=== PATIENT | female | born 1990 | race Caucasian/White ===

== ENCOUNTER → 2020-08-14 15:18 | Outpatient (BNVA) | payer OTHER, SELFPAY | PROVIDERS: Family Provider Family Medicine; PCP Family Medicine | DX: Z20.828 Contact with and (suspected) exposure to other viral communicable diseases (principal); Z01.812 Encounter for preprocedural laboratory examination | CPT/HCPCS: 87635 ==

== ENCOUNTER 2021-12-03 20:04 | Inpatient (IN) | payer OTHER, BC, SELFPAY ==
[2021-12-03] VITALS (30 sets, daily range): BP systolic 134–192; BP diastolic 68–103; PULSE 65–90; RESP 16–18; TEMP 35.5–35.9; BMI 49.6
[2021-12-03 18:34] LABS: Basophils % 0.2 %; Eosinophils # 0.1 10^3/uL (0.0-0.8); Eosinophils % 0.5 %; Hemoglobin 11.1 g/dL (11.5-15.3); Lymphocytes % 17.3 %; Mean Corpuscular HGB Conc 32.6 g/dL (30.0-36.0); Mean Corpuscular Hemoglobin 27.7 pg (28.0-34.0); Mean Corpuscular Volume 84.8 fl (81-99); Mean Platelet Volume 11.3 fL (7.4-10.4); Monocytes # 0.7 10^3/uL (0.2-0.9); Monocytes % 5.7 %; Neutrophils % 75.8 %; Nucleated Red Blood Cells % 0 %; Platelet Count 230 10^3/cmm (130-400); Red Blood Count 4.01 10^6/uL (4.1-5.3); Red Cell Distribution Width 12.7 % (12.1-15.1); White Blood Count 11.5 10^3/uL (4.0-10.0)
[2021-12-03 18:54] LABS: Albumin Level 3.4 g/dL (3.5-5.2); Alkaline Phosphatase 159 IU/L (35-105); Anion Gap 16.7 (5-19); Aspartate Amino Transferase 13 U/L (0-32); Blood Urea Nitrogen 5 mg/dL (6-20); Calcium 9.7 mg/dL (8.5-10.5); Carbon Dioxide 20 mmol/L (22-29); Chloride 102 mmol/L (98-107); Globulin 3.7 g/dL (1.3-4.6); Glomerular Filtration Rate 142.1 mL/min (90-130); Glucose 71 mg/dL (65-115); Osmolality Calculated 276 mOsm/kg (285-295); Potassium 3.7 mmol/L (3.5-5.1); Sodium 135 mmol/L (136-145); Total Bilirubin 0.3 mg/dL (0.15-1.2); Total Protein 7.1 g/dL (6.6-8.7); Uric Acid 4.7 mg/dL (2.4-5.7)
[2021-12-03 18:56] LABS: Urine Creatinine 51 mg/dL (28-217); Urine Protein Random 4 mg/dL
[2021-12-03 18:59] LABS: UPRO/UCREAT Ratio 0.08 mg/mg CR
[2021-12-03 19:04] LABS: Alanine Aminotransferase 12 U/L (0-33)
[2021-12-03] MEDS: dextrose 5%-lactated ringers 1,000 ML 125 ML IV (20:46)
[2021-12-03] MEDS: miSOPROStol 100 mcg tablet 25 MCG VAGINAL (20:47)
[2021-12-03] MEDS: labetalol 5 mg/mL SDV 20mL 20 MG IVP (21:52)
[2021-12-04] VITALS (47 sets, daily range): BP systolic 119–210; BP diastolic 62–103; PULSE 55–96; RESP 16–17; TEMP 35.9–36.9; O2SAT 96–98
[2021-12-04] MEDS: dextrose 5%-lactated ringers 1,000 ML 125 ML IV (04:56)
[2021-12-04] MEDS: oxytocin 30 UNIT/500 ML BAG IV (04:57)
[2021-12-04] MEDS: fentaNYL 50 mcg/mL INJ 2mL IVP (05:27)
--- NOTE | 2021-12-04 06:32 | PM.OPHPUD ---
Labor & Delivery H&P Update Date of Procedure: December 04, 2021 Date H&P Performed: 12/03/21 Changes to previous documentation: None. The patient presented to the hospital after an appointment with me in the office Admission Diagnosis: 1. 31-year-old 3 para 2-0-0-2 at 37 weeks and 5 days estimated gestational age presenting for induction due to gestational hypertension. Planned procedure: Spontaneous vaginal delivery Other information: The patient is an otherwise healthy female who presented to my office for a routine visit. During her visit she was noted to have blood pressures with a systolic blood pressure in the 150s to 140s, and diastolic blood pressures in the 90s. Otherwise, she had no symptoms of preeclampsia. As result she was sent to the hospital for a preeclamptic work-up. Her preeclampsia work-up was unremarkable. But, during her evaluation she was noted to have intermittent blood pressures that were severe. Because of her gestational age, the decision was made to induce the patient. She was placed on Cytotec 25 mcg per vagina. Of note, she was already having painful consistent contractions prior to initiating the Cytotec. The patient's course was otherwise unremarkable. Her labs were generally unremarkable Her blood type was O+. Her antibody screen was negative. She is rubella nonimmune. She was GBS negative. Her glucose screen was negative. The remainder of her labs are within normal limits. Related Problem List Diagnoses (1) 37 weeks gestation of : (2) Gestational hypertension: We will continue to monitor the patient's blood pressure. She does appear to have moments where her blood pressure spikes when she is anxious. They then resolved back to a mildly elevated blood pressure. Since she has no other symptoms of preeclampsia, and her blood pressure spikes are intermittent, I will wait and see if magnesium is needed.
--- NOTE | 2021-12-04 06:46 | P.PCNOB_ITS ---
Delivery Note: Date of delivery: December 04, 2021 Pre-delivery diagnoses: 1. 31-year-old 3 para 2-0-0-2 with an estimated gestational age of 37 weeks and 5 days 2. Gestational hypertension Post-delivery diagnoses: Status post spontaneous vaginal delivery Procedure: Spontaneous vaginal delivery Delivering Physician: Jamie Garcia Estimated blood loss (mL): 100 Pre-Delivery Course: The patient presented to the hospital for induction due to gestational hypertension. She was already having consistent painful contractions prior to starting Cytotec. The patient was given 1 dose of Cytotec vaginally. She had spontaneous rupture membranes. Intermittently, she spiked severe blood pressures during the night. Her blood pressures were good then resolve to mildly elevated blood pressures. She did receive 1 dose of labetalol during the night. She continued to have no symptoms associated with preeclampsia. She then progressed to complete. Delivery: DELIVERY: The patient progressed to complete without difficulty. She delivered a male with a weight of 7 pounds 4 ounces with Apgars of 8, 9. The baby was delivered from the CONNIE position and placed on the mother's abdomen. The cord was then clamped and cut. There was no nuchal cord. There was no meconium. The placenta and 3 vessel cord were delivered intact shortly thereafter. The perineum and vaginal vault were carefully examined. A first- degree anterior vaginal wall laceration was noted that was not bleeding. No repair was performed. Both the mother and the baby were in stable condition. Post-Delivery Status: Good A&P Assessment and plan (1) Gestational hypertension: Status: Acute (2) 37 weeks gestation of : Status: Acute (3) Spontaneous vaginal delivery: We will continue to monitor the patient's blood pressure. Hopefully we can avoid magnesium at this point. I anticipate routine care as long as her blood pressure remained stable. Status: Acute Coding Level of Care Code Acute Food And Beverage Server for g Fwd Diagnoses Gestational hypertension O13.9 37 weeks gestation of Z3A.37 Spontaneous vaginal delivery O80
[2021-12-04] MEDS: ketorolac 30 mg/mL INJ IVP (06:47)
[2021-12-04] MEDS: HYDROcodone-acetaminophen 5-325 mg Tablet PO ×2 (07:42→14:33)
[2021-12-04] MEDS: prenatal vitamin Capsule 1 CAP PO (08:42)
[2021-12-04] MEDS: docusate sodium 100 mg Capsule PO ×2 (08:42→17:25)
[2021-12-04] MEDS: ibuprofen 800 mg tablet PO ×3 (08:42→21:27)
[2021-12-04 21:48] LABS: Hematocrit 30.8 % (37.0-47.0); Mean Corpuscular HGB Conc 32.5 g/dL (30.0-36.0); Mean Corpuscular Hemoglobin 28.1 pg (28.0-34.0); Mean Corpuscular Volume 86.5 fl (81-99); Mean Platelet Volume 11.6 fL (7.4-10.4); Platelet Count 199 10^3/cmm (130-400); Red Blood Count 3.56 10^6/uL (4.1-5.3); White Blood Count 11.5 10^3/uL (4.0-10.0)
[2021-12-05] MEDS: HYDROcodone-acetaminophen 5-325 mg Tablet PO (00:06)
[2021-12-05 04:00] VITALS: BP 134/70; PULSE 94; RESP 16; TEMP 36.6
--- NOTE | 2021-12-05 06:45 | PM.OBGYDC ---
Discharge Providers OFFLINE CUTTER Date of Admission: 12/03/21 20:04 Date of Discharge: 12/05/21 Attending Provider at Admission: Jamie Garcia MD Attending Provider at Discharge: Jamie Garcia MD Primary Care Provider: Jamie Garcia MD Diagnoses at Discharge Discharge Diagnosis (1) Gestational hypertension: Status: Acute (2) 37 weeks gestation of : Status: Acute (3) Spontaneous vaginal delivery: Status: Acute Reason for Visit Reason for Visit: elevated blood pressure, pre-E workup Hospital Course Hospital Course The patient presented to the hospital for induction due to gestational hypertension. She occasionally had blood pressures in the severe range. She was placed on Cytotec, and progressed to complete having an unremarkable vaginal delivery. Her course was also unremarkable. She breast-fed well. Her bleeding was within normal limits. Her pain was well controlled. Her blood pressures improved after delivery of the . There were no further concerns. Information Peripartum Data: Delivery Method: Vaginal Physical Exam Narrative: The patient is alert. She appears comfortable. Her heart has a regular rate and rhythm with no murmurs appreciated. Lungs are clear to auscultation bilaterally. Her fundus is firm and below the umbilicus. Discharge Data Studies Completed and Pending Laboratory Results WBC 11.5 10^3/uL (4.0-10.0) H 12/04/21 21: RBC 3.56 10^6/uL (4.1-5.3) L 12/04/21 21:30 Hgb 10.0 g/dL (11.5-15.3) L 12/04/21 21: Hct 30.8 % (37.0-47.0) L 12/04/21 21: MCV 86.5 fl (81-99) 12/04/21 21:30 MCH 28.1 pg (28.0-34.0) 12/04/21 21: MCHC 32.5 g/dL (30.0-36.0) 12/04/21 21: RDW 13.0 % (12.1-15.1) 12/04/21 21:30 Plt Count 199 10^3/cmm (130-400) 12/04/21 21:30 MPV 11.6 fL (7.4-10.4) H 12/04/21 21:30 Neut % (Auto) 75.8 % 12/03/21 18:06 Lymph % (Auto) 17.3 % 12/03/21 18:06 [place] % (Auto) 5.7 % 12/03/21 18:06 Eos % (Auto) 0.5 % 12/03/21 18:06 Baso % (Auto) 0.2 % 12/03/21 18:06 Neut # (Auto) 8.70 10^3/uL (1.8-7.7) H 12/03/21 18:06 Lymph # (Auto) 2.0 10^3/uL (0.8-4.8) 12/03/21 18:06 [place] # (Auto) 0.7 10^3/uL (0.2-0.9) 12/03/21 18:06 Eos # (Auto) 0.1 10^3/uL (0.0-0.8) 12/03/21 18:06 Baso # (Auto) 0.0 10^3/uL (0.0-0.1) 12/03/21 18:06 Nucleated RBC % (auto) 0 % 12/03/21 18:06 Nucleated RBCs # 0.0 /100WBC 12/03/21 18:06 Sodium 135 mmol/L (136-145) L 12/03/21 18:06 Potassium 3.7 mmol/L (3.5-5.1) 12/03/21 18:06 Chloride 102 mmol/L (98-107) 12/03/21 18:06 Carbon Dioxide 20 mmol/L (22-29) L 12/03/21 18:06 Anion Gap 16.7 (5-19) 12/03/21 18:06 BUN 5 mg/dL (6-20) L 12/03/21 18:06 Creatinine 0.5 mg/dL (0.5-0.9) 12/03/21 18:06 GFR Calculation 142.1 mL/min (90-130) H 12/03/21 18:06 Glucose 71 mg/dL (65-115) 12/03/21 18:06 Calculated Osmolality 276 mOsm/kg (285-295) L 12/03/21 18:06 Uric Acid 4.7 mg/dL (2.4-5.7) 12/03/21 18:06 Calcium 9.7 mg/dL (8.5-10.5) 12/03/21 18:06 Total Bilirubin 0.3 mg/dL (0.15-1.2) 12/03/21 18:06 AST 13 U/L (0-32) 12/03/21 18:06 ALT 12 U/L (0-33) 12/03/21 18:06 Alkaline Phosphatase 159 IU/L (35-105) H 12/03/21 18:06 Total Protein 7.1 g/dL (6.6-8.7) 12/03/21 18:06 Albumin 3.4 g/dL (3.5-5.2) L 12/03/21 18:06 Globulin 3.7 g/dL (1.3-4.6) 12/03/21 18:06 U Random Total Protein 4 mg/dL 12/03/21 18:00 Urine Creatinine 51 mg/dL (28-217) 12/03/21 18:00 Protein/Creatinin Ratio 0.08 mg/mg CR 12/03/21 18:00 Vitals Last Vital Signs Temp 98.2 F 12/04/21 16:16 Pulse 72 12/04/21 20:00 Resp 16 12/04/21 20:00 BP 137/69 12/04/21 20:00 Pulse Ox 98 12/04/21 20:00 Discharge Plan Discharge Condition: Stable Prescriptions: New ibuprofen 800 mg Tablet 800 mg PO TID Qty: 45 0RF Continued Vitamin 27 mg iron- 800 mcg Tablet 1 tab PO DAILY 0RF Referrals: Jamie Garcia MD [Primary Care Provider] - 12/10/21 4:00 pm Discharge Diet: Advance as tolerated Discharge Activity: Resume usual activity Patient Instructions: Opioid Safety Discharge Attestations OFFLINE CUTTER Time Spent in Discharge Care*: less than 30 min Coding Level of Care Code Acute Maintenance Mechanic Technician for Chg Fwd Diagnoses Gestational hypertension O13.9 37 weeks gestation of Z3A.37 Spontaneous vaginal delivery O80
[2021-12-05 07:45] VITALS: BP 142/87; PULSE 80; RESP 18; TEMP 36.6
[2021-12-05 08:25] VITALS: BP 142/87; PULSE 80; RESP 18; TEMP 36.6
== END 2021-12-05 08:25 | disposition home or self-care (01) | DRG 807 ==
LOC: OPOB 12-04 00:19 → OBGYN 12-04 00:19
PROVIDERS: Admitting Provider Family Medicine; PCP Family Medicine; Visit Provider Family Medicine
DX: O13.4 Gestational [pregnancy-induced] hypertension without significant proteinuria, complicating childbirth (principal); Z37.0 Single live birth; Z3A.37 37 weeks gestation of pregnancy
CPT/HCPCS: 12345; 36415; 59025; 59409; 80053; 82570; 84156; 84550; 85025; 85027; 99211; J1885; J3010; J3490

== ENCOUNTER 2022-10-31 20:33 | Observation (INO) | payer BC, SELFPAY ==
[2022-10-31 20:43] VITALS: BP 148/107; PULSE 79; RESP 24; TEMP 36.7; O2SAT 98; BMI 48.3
--- NOTE | 2022-10-31 21:16 | USR_ITS ---
PROCEDURE INFORMATION: Exam: US Abdomen, Limited; Right Upper Quadrant Exam date and time: 10/31/2022 9:30 PM Age: 32 years old Clinical indication: Abdominal pain; Other: Ruq pain; Patient HX: Patient was diagnosed with gallstones 2020, but has had no intervention. TECHNIQUE: Imaging protocol: Real time ultrasound of the abdomen with image documentation. Limited exam focused on the right upper quadrant. COMPARISON: US OB >= 14 weeks fetus [id number] 08/13/2021 4:18 PM FINDINGS: Liver: There is mild hyperechogenicity of the hepatic parenchyma compatible with fatty infiltration. Gallbladder: There are hyperechoic foci exhibiting acoustic shadowing seen within the gallbladder lumen, the largest measuring 3.4 cm compatible with prominent gallstones. The largest gallstone may be impacted in the gallbladder neck. There is asymmetric gallbladder wall thickening measuring up to 5 mm. There is a positive sonographic Rodriguez sign elicited. Biliary ducts: Normal. No stones. No dilation. Pancreas: The pancreas is not visualized secondary to body habitus and bowel gas. Right kidney: Normal. No mass. No hydronephrosis. Portal venous: Hepatopetal blood flow is documented within the main portal vein with color Doppler and duplex waveform sonography. US/US gall bladder [id number] IMPRESSION: 1. Prominent gallstones, the largest may be impacted in the gallbladder neck measuring 3.4 cm. There is asymmetric gallbladder wall thickening and a positive sonographic Rodriguez sign elicited, findings compatible with gallstone cholecystitis. 2. Fatty infiltration of the liver
--- NOTE | 2022-10-31 21:17 | ED_ITS ---
HPI - Abdominal Pain General: Chief Complaint: Abdominal Pain Stated Complaint: abd pain Time Seen by Provider: 10/31/22 20:55 Source: patient Mode of arrival: ambulatory Limitations: no limitations History of Present Illness: 32-year-old female who states she has had a history of gallstone she states she is post to get her gallbladder taken out 2 years ago but then she became and never had it taken out states she has been having increasing pain over the last month. States pain is sharp in nature seems to be worse with eating her pain is currently a 5 out of 10 she had some nausea denies any vomiting denies any fevers. Associated Symptoms: Denies chills, dysuria and fever(s) Review of Systems Const: Denies: fever(s), chills, body aches or change in appetite Eyes: Denies: blurry vision or eye discomfort ENMT: Denies: throat pain or dental pain Card: Denies: chest pain Resp: Denies: dyspnea GI: Reports: abdominal pain : Denies: dysuria Musc: Denies: neck pain or back pain Skin/Breast: Denies: rash Neuro: Denies: headache(s) Psych: Denies: depression [place]/Lymph: Denies: easy bruising All/Imm: Denies: urticaria PFSH ED PFSH: Medical History (Updated 11/01/22 @ 00:30 by Christel Lea MD) No pertinent past medical history Social History Smoking and tobacco status: former smoker Alcohol intake: never Physical Exam Const: COMMON NORMALS: no acute distress, patient oriented x3 and healthy appearing HENMT: COMMON NORMALS: normocephalic and atraumatic HEAD & SCALP: normocephalic and atraumatic Eye: COMMON NORMALS: Equal, round and reactive pupils present and EOMs intact bilaterally PUPIL: Yes Equal, round and reactive pupils present Neck/C-Spine: COMMON NORMALS: full ROM and supple Chest: COMMONS NORMALS: normal inspection of the chest and normal palpation of entire chest wall Resp: COMMON NORMALS: normal respiratory effort, No retractions, No use of accessory muscles and clear to auscultation bilaterally AUSCULTATION: clear to auscultation bilaterally Cardio: COMMON NORMALS: regular rate, regular rhythm and No murmurs present (Cardio) RATE: regular rate RHYTHM: regular rhythm GI: COMMON NORMALS: Normal to inspection, nondistended, normoactive bowel sounds present, Soft to palpation, non-tender and no masses PALPATION: Yes Soft to palpation Extremity: COMMON NORMALS: normal to inspection and full ROM Neuro: COMMON NORMALS: patient oriented x3, moves all extremities and no focal motor deficits Psych: COMMON NORMALS: mental status grossly normal, Normal thought process present and cooperative THOUGHT PROCESS: Normal thought process present Skin: COMMON NORMALS: no rashes or lesions noted and no wounds GENERAL SKIN EXAM: no rashes or lesions noted Course Vital Signs: Vital signs: Vital Signs Temperature 98.0 F 10/31/22 20:43 Pulse Rate 79 10/31/22 20:43 Respiratory Rate 18 10/31/22 23:36 Blood Pressure 148/107 10/31/22 20:43 Pulse Oximetry 98 10/31/22 20:43 Oxygen Delivery Me thod 10/31/22 20:43 MDM - Abdominal Pain Medical Decision Making Patient presents here with abdominal pain ultrasound shows cholecystitis she continue her pain here I spoke to surgeon on-call will admit for pain control with IV antibiotics. Lab Data 10/31/22 21:23 10/31/22 21:23 Labs/Radiology: Radiology Impressions Gallbladder Ultrasound 10/31/22 21:16 IMPRESSION: 1. Prominent gallstones, the largest may be impacted in the gallbladder neck measuring 3.4 cm. There is asymmetric gallbladder wall thickening and a positive sonographic Rodriguez sign elicited, findings compatible with gallstone cholecystitis. 2. Fatty infiltration of the liver Laboratory Results WBC 8.0 10^3/uL (4.0-10.0) 10/31/22 21:23 RBC 4.71 10^6/uL (4.1-5.3) 10/31/22 21:23 Hgb 13.0 g/dL (11.5-15.3) 10/31/22 21: Hct 40.5 % (37.0-47.0) 10/31/22 21: MCV 86.0 fl (81-99) 10/31/22 21: MCH 27.6 pg (28.0-34.0) L 10/31/22: MCHC 32.1 g/dL (30.0-36.0) 10/31/22: RDW 12.3 % (12.1-15.1) 10/31/22: Plt Count 265 10^3/cmm (130-400) 10/31/22: MPV 10.3 fL (7.4-10.4) 10/31/22: Neut % (Auto) 52.7 % 10/31/22: Lymph % (Auto) 38.5 % 10/31/22: [place] % (Auto) 5.3 % 10/31/22: Eos % (Auto) 2.6 % 10/31/22: Baso % (Auto) 0.5 % 10/31/22: Neut # (Auto) 4.21 10^3/uL (1.8-7.7) 10/31/22: Lymph # (Auto) 3.1 10^3/uL (0.8-4.8) 10/31/22: [place] # (Auto) 0.4 10^3/uL (0.2-0.9) 10/31/22: Eos # (Auto) 0.2 10^3/uL (0.0-0.8) 10/31/22: Baso # (Auto) 0.0 10^3/uL (0.0-0.1) 10/31/22: Nucleated RBC % (auto) 0 % 10/31/22: Nucleated RBCs # 0.0 /100WBC 10/31/22: Sodium 138 mmol/L (136-145) 10/31/22: Potassium 3.7 mmol/L (3.5-5.1) 10/31/22: Chloride 103 mmol/L (98-107) 10/31/22: Carbon Dioxide 25 mmol/L (22-29) 10/31/22: Anion Gap 13.7 (5-19) 10/31/22: BUN 13 mg/dL (6-20) 10/31/22: Creatinine 0.8 mg/dL (0.5-0.9) 10/31/22: GFR Calculation 82.1 mL/min (90-130) L 10/31/22: Glucose 90 mg/dL (65-115) 10/31/22 21: Calculated Osmolality 286 mOsm/kg (285-295) 10/31/22: Calcium 8.8 mg/dL (8.5-10.5) 10/31/22: Total Bilirubin 0.2 mg/dL (0.15-1.2) 10/31/22: AST 36 U/L (0-32) H 10/31/22: ALT 59 U/L (0-33) H 10/31/22: Alkaline Phosphatase 105 U/L (35-105) 10/31/22: Total Protein 7.7 g/dL (6.6-8.7) 10/31/22: Albumin 4.2 g/dL (3.5-5.2) 10/31/22: Globulin 3.5 g/dL (1.3-4.6) 10/31/22: Lipase 25 U/L (13-60) 10/31/22: HCG, Qual Negative (Negative) 10/31/22: Urine Color Yellow (Yellow) 10/31/22 22:05 Urine Appearance Clear (CLEAR) 10/31/22 22:05 Urine pH 5 (5-7) 10/31/22 22:05 Ur Specific [place] 1.030 (1.005-1.030) 10/31/22 22:05 Urine Protein Trace (Negative) 10/31/22 22:05 Urine Glucose (UA) Norm (Normal) 10/31/22 22:05 Urine Ketones Negative (Negative) 10/31/22 22:05 Urine Blood Neg (Negative) 10/31/22 22:05 Urine Nitrate Negative (Negative) 10/31/22 22:05 Urine Bilirubin Neg (Negative) 10/31/22 22:05 Urine Urobilinogen Norm mg/dL (Negative) 10/31/22 22:05 Ur Leukocyte Esterase Negative (Negative) 10/31/22 22:05 Urine RBC 0-4 /hpf (0-2) H 10/31/22 22:05 Urine WBC 0-4 /hpf (0-5) H 10/31/22 22:05 Ur Squamous Epith Cells 0-4 /hpf (0-5) H 10/31/22 22:05 Amorphous Sediment 1+ /hpf 10/31/22 22:05 Urine Bacteria None /hpf (NONE) 10/31/22 22:05 Discharge Plan Discharge Patient Disposition: Admitted As Inpatient Admit Provider: Campbell Bates Clinical Impression: Cholecystitis Condition: Stable Coding Level of Care Code ED Director Of Hospitality for Ira Duong
[2022-10-31] MEDS: ondansetron 2 mg/ML SDV 2 mL 4 MG IVP (21:21)
[2022-10-31] MEDS: morphine 4 mg/mL SDV 1 mL IVP ×2 (21:21→23:36)
[2022-10-31 22:10] LABS: Basophils % 0.5 %; Eosinophils # 0.2 10^3/uL (0.0-0.8); Eosinophils % 2.6 %; Hematocrit 40.5 % (37.0-47.0); Lymphocytes # 3.1 10^3/uL (0.8-4.8); Lymphocytes % 38.5 %; Mean Corpuscular HGB Conc 32.1 g/dL (30.0-36.0); Mean Corpuscular Hemoglobin 27.6 pg (28.0-34.0); Mean Platelet Volume 10.3 fL (7.4-10.4); Monocytes # 0.4 10^3/uL (0.2-0.9); Monocytes % 5.3 %; Neutrophils # 4.21 10^3/uL (1.8-7.7); Neutrophils % 52.7 %; Nucleated Red Blood Cells % 0 %; Platelet Count 265 10^3/cmm (130-400); Red Blood Count 4.71 10^6/uL (4.1-5.3); Red Cell Distribution Width 12.3 % (12.1-15.1)
[2022-10-31 22:16] LABS: HCG, Serum Qual Negative (Negative)
[2022-10-31 22:20] LABS: Alanine Aminotransferase 59 U/L (0-33); Albumin Level 4.2 g/dL (3.5-5.2); Alkaline Phosphatase 105 U/L (35-105); Anion Gap 13.7 (5-19); Aspartate Amino Transferase 36 U/L (0-32); Blood Urea Nitrogen 13 mg/dL (6-20); Calcium 8.8 mg/dL (8.5-10.5); Carbon Dioxide 25 mmol/L (22-29); Chloride 103 mmol/L (98-107); Globulin 3.5 g/dL (1.3-4.6); Glomerular Filtration Rate 82.1 mL/min (90-130); Glucose 90 mg/dL (65-115); Lipase 25 U/L (13-60); Osmolality Calculated 286 mOsm/kg (285-295); Potassium 3.7 mmol/L (3.5-5.1); Sodium 138 mmol/L (136-145); Total Bilirubin 0.2 mg/dL (0.15-1.2); Total Protein 7.7 g/dL (6.6-8.7)
[2022-10-31 22:29] LABS: Add Urine Microscopic? YES; Bilirubin Urine Neg (Negative); Blood Urine Neg (Negative); Glucose Urine UA Norm (Normal); Ketones Urine Negative (Negative); Leukocyte Esterase Urine Negative (Negative); Nitrate Urine Negative (Negative); Protein Urine Trace (Negative); Urine Appearance Clear (CLEAR); Urine Color Yellow (Yellow); Urobilinogen Urine Norm (Negative); pH Urine 5 (5-7)
[2022-10-31 22:31] LABS: RBC Urine 0-4 /hpf (0-2); Squamous Epithelial Cell Urine 0-4 /hpf (0-5); WBC Urine 0-4 /hpf (0-5)
[2022-10-31 22:32] LABS: Add Urine Culture? No; Amorphous Sediment Urine 1+ /hpf
[2022-10-31] MEDS: piperacillin-tazobactam 3.375 GM in sodium chloride 0.9% (plus) 50 ML IV (23:23)
[2022-10-31 23:36] VITALS: RESP 18
[2022-11-01 00:49] VITALS: BP 145/103; PULSE 78; RESP 16; O2SAT 96
[2022-11-01 01:00] VITALS: BMI 48.3
[2022-11-01 01:26] VITALS: RESP 16
[2022-11-01] MEDS: HYDROmorphone 1 mg/mL INJ 1 mL IVP (01:26)
[2022-11-01] MEDS: sodium chloride 0.9% 1,000 ML 100 ML IV ×2 (01:32→17:06)
[2022-11-01] MEDS: ondansetron 2 mg/ML SDV 2 mL 4 MG IVP ×3 (01:41→10:27)
--- NOTE | 2022-11-01 05:37 | PC.NURSE ---
Patient's IV in right AC infiltrated. IV stopped and removed, catheter tip intact upon removal. Patient tolerated well.
[2022-11-01] MEDS: piperacillin-tazobactam 3.375 GM in sodium chloride 0.9% (plus) 50 ML IV (10:21)
--- NOTE | 2022-11-01 11:11 | PC.CHAP ---
Pastoral Care Encounter/Spiritual Assessment Type of Contact [] Declined information security visit [] Patient/Family/Request visit [] Outpatient visit [] Follow-up visit [] Physician referral [] Code/Alert [x] Routine visit [] Staff referral [] Actively dying [] Patient sleeping [x] Family support [] [] Out of room [] Palliative care [] [] Receiving care in room [] Pre-surgical visit [] Trauma [] Long length of stay [] ICU visit [] Other: Relational/Emotional Strength [x] Patient feels connected with others/family/visitors/staff [] Distress [] Loneliness/isolation [] Abandonment Spirituality of Patient [x] Person of Kaur [] Attends Caodaism of their Kaur [x] Believes in Prayer [] Reads Bible or Jehovah'S Witness materials [] There are Spiritual issues to be addressed Hogshead Inspector Interventions [x] Prayer [x] Active listening [] Non-anxious presence [] Spiritual/emotional support [] Crisis/trauma care [] Spiritual counseling [] Bereavement support [] Provided bereavement packet [] Provided Bible/devotional materials [] Provided toy/stuffed animal, coloring book to patient or family member [] Provided Communion [] Anointing/Badger [] Salvation x [x] Completed spiritual assessment [] Other: Impact on Illness or Injury [] Angry [] Fearful [] Anxious [] Often cries [] Exhaustion [] Unable to work [] Unable to attend voodoo [] Unable to walk/stand [] Unable to read [] Unable to drive [] Unable to eat/drink [] Unable to sleep [] Unable to be with family [] Patient intubated [] Other: Summary Time spent with patient 10 min
--- NOTE | 2022-11-01 11:39 | P.HP_ITS ---
Providers/Chief Complaint Admitting Physician: Campbell Bates DO Primary Care Provider: Jamie Garcia MD Chief Complaint: abd pain History of Present Illness Jolene Turner is a 32 year old female who presents to the hospital with a 2- year history of right upper quadrant abdominal pain. She reports this pain is intermittent and has been constant for the last 2 days. The pain is gnawing and radiates to her back. Eating can make the pain worse. Nothing seems to make t he pain better. She does endorse nausea and vomiting but denies hematemesis. Reports diarrhea but denies hematochezia and/or melena. Denies fever or chills. Ultrasound shows cholecystitis Review of Systems General: Reports: 10 or more systems reviewed and unremarkable except in HPI and below Medications/Allergies Home Medications Medication Instructions Recorded Confirmed Last Taken Type ibuprofen 800 mg tablet 800 mg PO TID #45 tabs 12/05/21 11/01/22 Unknown Rx escitalopram oxalate 10 mg tablet 10 mg PO DAILY 11/01/22 11/01/22 Unknown His tory Allergies Allergy/AdvReac Type Severity Reaction Status Date / Time Cephalosporins Allergy Intermediate hives Verified 11/01/22 07:34 PFSH Acute PFSH: Medical History No pertinent past medical history Social History Smoking and tobacco status: former smoker Alcohol intake: never Vitals/I&O/Wt Last Vital Signs Temp 97.5 F L 11/02/22 03:34 Pulse 80 11/02/22 03:34 Resp 18 11/02/22 03:34 BP 159/91 11/02/22 03:34 Pulse Ox 96 11/02/22 03:34 O2 Del Method 11/02/22 03:34 11/01/22 11/02/22 11/02/22 22:59 06:59 14:59 Intake Total 240 / 1530 1266.667 / 2796.667 Balance 240 / 1530 1266.667 / 2796.667 Weight last 48 hrs Weight 260 lb 4.8 oz Weight 256 lb Weight 256 lb Physical Exam Narrative: General : Patient is well developed , no acute distress, oriented x3 Head : Normal cephalic, a-traumatic. Ears : Pinnae and external canal are normal. Hearing is normal. Eyes : PERRLA, Sclera and injection are normal. No conjunctival discharge. Nose : Mucous membranes are without erythema. Throat : buccal mucosa is normal, gums are without significant recession or hypertrophy. Lungs : Equal chest rise bilaterally, no use of accessory muscles, trachea is midline. Cor : Rate and rhythm are normal. Abdomen : Soft, ND, mild right upper quadrant tenderness, negative Rordiguez's, no g/r/m Extremities : No edema, no cyanosis or clubbing, dorsalis pedis pulses are present bilaterally, non-tender to palpation of calves. Upper extremities are normal bilaterally. Back : non-tender to palpation, no CVA tenderness. Neuro : CN II - XII intact, Upper and lower extremities have equal and full strength Data 10/31/22 21:23 10/31/22 21:23 A&P Assessment and plan (1) Cholecystitis: Plan Laparoscopic cholecystectomy tomorrow The risks and benefits of the procedure, including but not limited to, bleeding, infection, scar, numbness, pain, damage to surrounding structures, damage to c ommon bile duct requiring additional surgery, conversion to an open procedure, were explained to the patient. He is understanding of the risks and wishes to proceed. Attestations Medical Necessity Statement*: Patient requires at least 1 more night in the hospital for laparoscopic cholecystectomy tomorrow Coding Level of Care Code Acute Code for [facility] Diagnoses Cholecystitis K81.9
[2022-11-01] MEDS: HYDROcodone-acetaminophen 7.5-325 mg Tablet 1 TAB PO ×2 (13:45→21:51)
[2022-11-01 16:36] VITALS: BP 146/84; PULSE 75; RESP 16; TEMP 36.6; O2SAT 96
[2022-11-01 20:36] VITALS: BP 153/87; PULSE 63; RESP 18; TEMP 36.7; O2SAT 98
[2022-11-02] VITALS (22 sets, daily range): BP systolic 116–199; BP diastolic 75–107; PULSE 54–85; RESP 15–18; TEMP 36.1–37.1; O2SAT 93–99
[2022-11-02] MEDS: sodium chloride 0.9% 1,000 ML 100 ML IV ×2 (00:58→11:38)
[2022-11-02] MEDS: HYDROcodone-acetaminophen 7.5-325 mg Tablet 1 TAB PO ×4 (05:37→21:16)
--- NOTE | 2022-11-02 07:29 | W.PM.OPSUD ---
Surgery/Procedure H&P Update DATE OF PROCEDURE: November 02, 2022 DATE H&P PERFORMED: 11/01/22 H&P UPDATE INFORMATION: I have reviewed H&P completed within last 30 days, I have examined patient prior to procedure and No changes to prior documentation PREOP DIAGNOSIS: Cholecystitis PLANNED PROCEDURE: Operation Date: 11/02/22 08:50 Proposed Procedures p Laparoscopic Cholecystectomy(Right) - Campbell Bates DO
[2022-11-02] MEDS: piperacillin-tazobactam 3.375 GM in sodium chloride 0.9% (plus) 50 ML IV ×2 (07:57→16:05)
--- NOTE | 2022-11-02 08:06 | PC.NURSE ---
0805 Dr Bates here and patient seen. Patient to OR .
--- NOTE | 2022-11-02 08:28 | ANES.PREANE2 ---
Pre-Anesthetic Assessment Height/Weight: Height 1.55 m Weight 118.07 kg Temp Pulse Resp BP Pulse Ox O2 Del Method 97.5 F L 60 16 116/75 97 11/02/22 08:10 11/02/22 08:10 11/02/22 08:10 11/02/22 08:10 11/02/22 08:10 11/02/22 08:10 Preop Diagnosis: Cholecystitis Operation Date: 11/02/22 08:50 Proposed Procedures p Laparoscopic Cholecystectomy(Right) - Campbell Bates DO Familial anesthetic complications: none Was Beta Amilcar taken within 24 hours: N/A Was Clonidine taken within 24 hours: N/A Last intake: Intake Last Liquid Date 11/01/22 Last Liquid Time 23:50 Last Solid Date 11/01/22 Last Solid Time 23:50 Social No alcohol and No tobacco Exam alert, oriented x 3, clear to auscultation bilaterally and regular rate & rhythm Airway Submandibular: within normal limits Cervical ROM: within normal limits Mallampati: Class II Dentition: full History/ROS No significant history except as noted Metabolic Morbid Obesity Anesthetic Plan ASA status: 2 Anesthesia: General Medications/Allergies Home Medications Medication Instructions Recorded Confirmed Last Taken Type ibuprofen 800 mg tablet 800 mg PO TID #45 tabs 12/05/21 11/01/22 Unknown Rx escitalopram oxalate 10 mg tablet 10 mg PO DAILY 11/01/22 11/01/22 Unknown History Allergies Allergy/AdvReac Type Severity Reaction Status Date / Time Cephalosporins Allergy Intermediate hives Verified 11/01/22 07:34 Current Medications Generic Name Dose Route Start Last Admin Trade Name Freq PRN Reason Stop Dose Admin Hydrocodone Bitart/Acetaminophen 1 tab 11/01/22 13:33 11/02/22 05:37 Hydrocodone-Acetaminophen 7.5-325 Mg Tablet PO 1 tab Q4H PRN Administration MODERATE PAIN Sodium Chloride 1,000 mls @ 100 mls/hr 11/01/22 01:00 11/02/22 00:58 Sodium Chloride 0.9% IV 100 mls/hr .Q10H JEANIE Administration Piperacillin Sod/Tazobactam 50 mls @ 12.5 mls/hr 11/02/22 07:30 11/02/22 07:57 Sod 3.375 gm/ Sodium Chloride IV 12.5 mls/hr Q8H JEANIE Administration Protocol Ondansetron HCl 4 mg 11/01/22 01:00 11/01/22 10:27 Ondansetron 2 Mg/Ml Sdv 2 Ml IVP 4 mg Q6H PRN Administration NAUSEA AND VOMITING PFSH Anesthesia Medical History No pertinent past medical history Social History Smoking and tobacco status: former smoker Alcohol intake: never Data Anesthesia 10/31/22 21:23 10/31/22 21:23 Short CBC 10/31/22 Range/Units 21:23 WBC 8.0 (4.0-10.0) 10^3/uL Hgb 13.0 (11.5-15.3) g/dL Hct 40.5 (37.0-47.0) % MCV 86.0 (81-99) fl Plt Count 265 (130-400) 10^3/cmm Neut % (Auto) 52.7 % Neut # (Auto) 4.21 (1.8-7.7) 10^3/uL BMP 10/31/22 21:23 Sodium 138 Potassium 3.7 Chloride 103 Carbon Dioxide 25 BUN 13 Creatinine 0.8 Glucose 90 Calcium 8.8 Liver Function 10/31/22 Range/Units 21:23 Total Bilirubin 0.2 (0.15-1.2) mg/dL AST 36 H (0-32) U/L ALT 59 H (0-33) U/L Alkaline Phosphatase 105 (35-105) U/L Albumin 4.2 (3.5-5.2) g/dL Urine 10/31/22 Range/Units 22:05 Urine Color Yellow (Yellow) Urine Appearance Clear (CLEAR) Urine pH 5 (5-7) Ur Specific [place] 1.030 (1.005-1.030) Urine Protein Trace (Negative) Urine Glucose (UA) Norm (Normal) Urine Ketones Negative (Negative) Urine Nitrate Negative (Negative) Urine Bilirubin Neg (Negative) Ur Leukocyte Esterase Negative (Negative) Urine RBC 0-4 H (0-2) /hpf Urine WBC 0-4 H (0-5) /hpf Cardiac Studies: No Data to Display
--- NOTE | 2022-11-02 09:34 | P.OP_ITS ---
Operative Report Date of procedure: November 02, 2022 Pre-op diagnosis: Preop Diagnosis Cholecystitis Post-op diagnosis: other (Acute cholecystitis) Procedure done: Laparoscopic cholecystectomy Specimens removed/disposition: Gallbladder Surgeon: Dr. Campbell Bates DO Anesthesia: General Estimated blood loss (mL): 20 Complications: None apparent Brief History: Is a very pleasant 32-year-old female who presented with cholecystitis. Laparoscopic cholecystectomy was indicated. The risk and benefits were explained and documented. Procedure: Patient was wheeled into the operative room and placed on the OR table in a supine position. Abdomen was inspected prepped and draped in usual sterile fashion. Time-out was performed and all present were in agreement. A 15 blade scalp was used to make a stab incision in the left upper quadrant and intra- abdominal insufflation was achieved using a Veress needle. After localizing the tissue incisions were made and a 5 millimeter trocar was placed into the umbilicus as well as 2 in the right upper quadrant. A 12 millimeter trocar was placed in the epigastrium. Gallbladder was grasped and elevated. The gallbladder was very large and inflamed. The triangle of Calot was carefully dissected using blunt dissection and electrocautery until the triangle of Calot clearly identified. The cystic duct was clipped proximally and double clipped distally. The duct was then ligated proximally. The cystic artery was doubly clipped and ligated. The gallbladder was then removed from the liver bed using electrocautery. The gallbladder was removed from the abdomen using an Endo- Catch bag through the epigastric incision. The incision had to be extended significantly to accommodate the large gallbladder. The liver bed was inspected and spot cautery was used to control bleeding. The abdomen was irrigated and suctioned. The epigastric port fascia was closed with 0 Vicryl and a Damion- Chepe in a [id number] fashion. All ports removed. Skin was washed and dried. Incisions were closed with 3-0 and 4-O Vicryl in a subcuticular interrupted fashion. Skin glue was applied. Patient tolerated the procedure well.
[2022-11-02] MEDS: fentaNYL 50 mcg/mL INJ 2mL 100 MCG IVP (10:30)
--- NOTE | 2022-11-02 10:34 | ANE.PACU2 ---
Inpatient post-anesthesia follow up: Vital signs: Temperature 97 F Pulse Rate 79 Respiratory Rate 16 Blood Pressure 172/89 Pulse Oximetry 98 Oxygen Delivery Me thod Room Air Oxygen Flow Rate Fraction of Inspir ed Oxygen Hydration adequate: Yes Nausea and vomiting: No Pain level: 5 Pain level: just sore Mental status: Baseline Additional Comments: BP trending down 10mg of Hydralazine given 100 mcg fentanyl and 0.5mg of Dilaudid ordered.
[2022-11-02] MEDS: ondansetron 2 mg/ML SDV 2 mL 4 MG IVP ×2 (10:42→16:13)
[2022-11-02] MEDS: HYDROmorphone 1 mg/mL INJ 1 mL 0.5 MG IVP (10:50)
[2022-11-02] MEDS: labetalol 5 mg/mL SDV 20mL IVP (10:50)
--- NOTE | 2022-11-02 11:17 | PC.NURSE ---
1100 report recieved from PACU 1117 patient returned to room 262 family at bedside.
--- NOTE | 2022-11-02 19:49 | PC.NURSE ---
0 Patient noted to have bandaide to med abdomin saturated with blood and driping from bandaid, Charge notified and bandaide removed and coverderm applied no bleeding noted from incision. sutures intact and edges approximated well.
[2022-11-02] MEDS: morphine 4 mg/mL SDV 1 mL IVP (23:00)
--- NOTE | 2022-11-02 23:11 | PC.NURSE ---
Addendum entered by SHANNA Luther 11/02/22 23:26: Dr Sanford unable to give orders due to patient not having hospitalist consult. Original Note: Patient was given hydrocodone approximately 2100. Approximately 0, nurse was informed by aid that patient was still hurting at incision areas and in lower back. Upon entering patient room, patient was found crying in bed and stating that her pain had increased. Patient did not want PRN morphine that was available to her, due to experience with headaches. Dr Sanford was contacted regarding a new pain medication, no orders received at time. Patient was given morphine IVP, as well as warm blankets to wrap around abdomen and back. Incision sites remained dry and intact at time of observation. Patient was left resting in bed, two side rails up with bedside table and call light within reach. Patient stated no further needs at this time.
[2022-11-03] VITALS: BP 120/75; PULSE 86; RESP 18; TEMP 36.8; O2SAT 96
[2022-11-03] MEDS: HYDROcodone-acetaminophen 7.5-325 mg Tablet 1 TAB PO ×3 (01:20→13:43)
[2022-11-03] MEDS: piperacillin-tazobactam 3.375 GM in sodium chloride 0.9% (plus) 50 ML IV ×2 (01:20→09:33)
[2022-11-03] MEDS: sodium chloride 0.9% 1,000 ML 100 ML IV (01:22)
[2022-11-03 05:38] VITALS: BP 150/84; PULSE 88; RESP 18; TEMP 36.7; O2SAT 96
[2022-11-03 08:00] VITALS: BP 165/95; PULSE 65; RESP 16; TEMP 37.1; O2SAT 99
--- NOTE | 2022-11-03 08:31 | PM.DCS ---
Discharge Providers Date of Admission: 11/01/22 01:00 Date of Discharge: November 03, 2022 Attending Provider at Admission: Campbell Bates DO Attending Provider at Discharge: Campbell Bates DO Primary Care Provider: Jamie Garcia MD Diagnoses at Discharge Discharge Diagnosis (1) Cholecystitis: Status: Acute Reason for Visit Reason for Visit: abd pain Hospital Course Hospital Course Is a very pleasant 32-year-old female who presents to emergency room with acute cholecystitis. She underwent laparoscopic cholecystectomy and was discharged home the next day in good condition. Physical Exam Narrative: General : Patient is well developed , no acute distress, oriented x3 Head : Normal cephalic, a-traumatic. Ears : Pinnae and external canal are normal. Hearing is normal. Eyes : PERRLA, Sclera and injection are normal. No conjunctival discharge. Nose : Mucous membranes are without erythema. Throat : buccal mucosa is normal, gums are without significant recession or hypertrophy. Lungs : Equal chest rise bilaterally, no use of accessory muscles, trachea is midline. Cor : Rate and rhythm are normal. Abdomen : Soft, ND, appropriately tender to palpation, no g/r/m Incisions intact without erythema or exudate Extremities : No edema, no cyanosis or clubbing, dorsalis pedis pulses are present bilaterally, non-tender to palpation of calves. Upper extremities are normal bilaterally. Back : non-tender to palpation, no CVA tenderness. Neuro : CN II - XII intact, Upper and lower extremities have equal and full strength Discharge Data Studies Completed and Pending Completed Studies During Hospitalization Category Date Time Status US gall bladder 31412 Stat Ultrasound 10/31/22 21:16 Completed Pending at discharge Category Date Time Status Pathology: Surgical [PTH] Routine Pth 11/02/22 09:49 Ordered Radiology Impressions Gallbladder Ultrasound 10/31/22 21:16 IMPRESSION: 1. Prominent gallstones, the largest may be impacted in the gallbladder neck measuring 3.4 cm. There is asymmetric gallbladder wall thickening and a positive sonographic Rodriguez sign elicited, findings compatible with gallstone cholecystitis. 2. Fatty infiltration of the liver Laboratory Results WBC 8.0 10^3/uL (4.0-10.0) 10/31/22 21:23 RBC 4.71 10^6/uL (4.1-5.3) 10/31/22 21:23 Hgb 13.0 g/dL (11.5-15.3) 10/31/22: Hct 40.5 % (37.0-47.0) 10/31/22: MCV 86.0 fl (81-99) 10/31/22: MCH 27.6 pg (28.0-34.0) L 10/31/22: MCHC 32.1 g/dL (30.0-36.0) 10/31/22: RDW 12.3 % (12.1-15.1) 10/31/22: Plt Count 265 10^3/cmm (130-400) 10/31/22: MPV 10.3 fL (7.4-10.4) 10/31/22 Neut % (Auto) 52.7 % 10/31/22: Lymph % (Auto) 38.5 % 10/31/22: [place] % (Auto) 5.3 % 10/31/22: Eos % (Auto) 2.6 % 10/31/22: Baso % (Auto) 0.5 % 10/31/22: Neut # (Auto) 4.21 10^3/uL (1.8-7.7) 10/31/22: Lymph # (Auto) 3.1 10^3/uL (0.8-4.8) 10/31/22: [place] # (Auto) 0.4 10^3/uL (0.2-0.9) 10/31/22: Eos # (Auto) 0.2 10^3/uL (0.0-0.8) 10/31/22: Baso # (Auto) 0.0 10^3/uL (0.0-0.1) 10/31/22 Nucleated RBC % (auto) 0 % 10/31/22 Nucleated RBCs # 0.0 /100WBC 10/31/22: Sodium 138 mmol/L (136-145) 10/31/22: Potassium 3.7 mmol/L (3.5-5.1) 10/31/22: Chloride 103 mmol/L (98-107) 10/31/22: Carbon Dioxide 25 mmol/L (22-29) 10/31/22 21: Anion Gap 13.7 (5-19) 10/31/22 21: BUN 13 mg/dL (6-20) 10/31/22 21: Creatinine 0.8 mg/dL (0.5-0.9) 10/31/22 21: GFR Calculation 82.1 mL/min (90-130) L 10/31/22: Glucose 90 mg/dL (65-115) 10/31/22 21: Calculated Osmolality 286 mOsm/kg (285-295) 10/31/22: Calcium 8.8 mg/dL (8.5-10.5) 10/31/22: Total Bilirubin 0.2 mg/dL (0.15-1.2) 10/31/22: AST 36 U/L (0-32) H 10/31/22: ALT 59 U/L (0-33) H 10/31/22: Alkaline Phosphatase 105 U/L (35-105) 10/31/22 21: Total Protein 7.7 g/dL (6.6-8.7) 10/31/22: Albumin 4.2 g/dL (3.5-5.2) 10/31/22: Globulin 3.5 g/dL (1.3-4.6) 10/31/22: Lipase 25 U/L (13-60) 10/31/22 21: HCG, Qual Negative (Negative) 10/31/22 21: Urine Color Yellow (Yellow) 10/31/22 22:05 Urine Appearance Clear (CLEAR) 10/31/22 22:05 Urine pH 5 (5-7) 10/31/22 22:05 Ur Specific [place] 1.030 (1.005-1.030) 10/31/22 22:05 Urine Protein Trace (Negative) 10/31/22 22:05 Urine Glucose (UA) Norm (Normal) 10/31/22 22:05 Urine Ketones Negative (Negative) 10/31/22 22:05 Urine Blood Neg (Negative) 10/31/22 22:05 Urine Nitrate Negative (Negative) 10/31/22 22:05 Urine Bilirubin Neg (Negative) 10/31/22 22:05 Urine Urobilinogen Norm mg/dL (Negative) 10/31/22 22:05 Ur Leukocyte Esterase Negative (Negative) 10/31/22 22:05 Urine RBC 0-4 /hpf (0-2) H 10/31/22 22:05 Urine WBC 0-4 /hpf (0-5) H 10/31/22 22:05 Ur Squamous Epith Cells 0-4 /hpf (0-5) H 10/31/22 22:05 Amorphous Sediment 1+ /hpf 10/31/22 22:05 Urine Bacteria None /hpf (NONE) 10/31/22 22:05 Procedures Performed Laparoscopic cholecystectomy Vitals Last Vital Signs Temp 98.7 F 11/03/22 08:00 Pulse 65 11/03/22 08:00 Resp 16 11/03/22 08:00 BP 165/95 11/03/22 08:00 Pulse Ox 99 11/03/22 08:00 O2 Del Method 11/03/22 08:00 O2 Flow Rate 3 11/02/22 10:40 Discharge Plan Discharge Patient Disposition: Home Condition: Stable Prescriptions: New hydrocodone-acetaminophen 5-325 mg tablet 1 tab PO Q6H PRN (Reason: pain) Qty: 20 0RF DOK 100 mg capsule 100 mg PO BID Qty: 20 0RF amoxicillin-pot clavulanate 875-125 mg tablet 1 tab PO BID Qty: 14 0RF Continued escitalopram oxalate 10 mg tablet 10 mg PO DAILY Held ibuprofen 800 mg Tablet 800 mg PO TID Qty: 45 0RF Hold Instructions: Resume on 11/06/22. Discharge Orders: Discharge Order (Routine); Ordered 11/03/22 Ordered By: Campbell Bates Referrals: Campbell Bates DO [Physician] - 2 weeks Jamie Garcia MD [Primary Care Provider] - 4-7 days (Please call and schedule your appointment with Dr. Garcia on Friday.) Discharge Diet: Advance as tolerated Discharge Activity: Resume usual activity Patient Instructions: Hydrocodone/Acetaminophen (By mouth), Amoxicillin/Clavulanate Potassium (By mouth), Laxative, Stool Softeners (By mouth), Laparoscopic Cholecystectomy (GEN), Opioid Safety, Post Anesthesia Care Activity Restrictions/Additional Instructions: Do not soak incisions underwater for 2 weeks. Shower daily. Discharge Attestations Time Spent in Discharge Care*: less than 30 min Quality Metrics Clinical Quality Measures [ No reported AMI, CVA or VTE this stay] Coding Level of Care Code Acute Code for Chg Fwd Diagnoses Cholecystitis K81.9
[2022-11-03 13:45] VITALS: BP 165/95; PULSE 65; RESP 20; TEMP 36.8; O2SAT 99
--- NOTE | 2022-11-03 14:06 | PC.NURSE ---
1330 Iv dc'd with catheater intact. 1340 Discharge instructions given ti patient who voiced understanding. 1345 Patient discharged to home with family patient in stable condition personal belongings with patient
== END 2022-11-03 13:45 | disposition home or self-care (01) ==
LOC: ER 11-01 00:32 → MEDSURG 11-01 00:41
PROVIDERS: Admitting Provider Surgery; Emergency Provider Emergency Medicine; PCP Family Medicine; Visit Provider Surgery
PROC: 0FT44ZZ Resection of Gallbladder, Percutaneous Endoscopic Approach (ICD-10-PCS; CPT 47562; principal; 2022-11-02 08:30)
DX: K80.10 Calculus of gallbladder with chronic cholecystitis without obstruction (principal); Z87.891 Personal history of nicotine dependence
CPT/HCPCS: 47562; 76705; 80053; 81001; 83690; 84703; 85025; 88304; 96365; 96366; 96375; 96376; 99285; G0378; J1100; J1170; J1200; J1885; J2250; J2270; J2370; J2405; J2543; J2704; J2710; J3010; J3490; J7030

== ENCOUNTER → 2024-10-20 07:12 | Outpatient (BNVA) | payer OTHER, BC, SELFPAY | PROVIDERS: PCP Family Medicine; Visit Provider Nurse Practitioner Family | DX: R68.89 Other general symptoms and signs (principal) | CPT/HCPCS: 87804 ==

== ENCOUNTER → 2024-12-08 13:32 | Outpatient (BNVA) | payer OTHER, BC, SELFPAY | PROVIDERS: PCP Family Medicine; Visit Provider Nurse Practitioner Family | DX: J02.9 Acute pharyngitis, unspecified (principal) | CPT/HCPCS: 87880 ==